=== PATIENT | male | born 1950 | race Caucasian/White ===

== ENCOUNTER 2021-03-25 12:43 | Emergency (ER) | payer MEDICARE, OTHER | END 2021-03-25 16:33 | disposition other institution (70) | LOC: FER 12:43 | DX: S62.606A Fracture of unspecified phalanx of right little finger, initial encounter for closed fracture (principal); S61.216A Laceration without foreign body of right little finger without damage to nail, initial encounter; W23.1XXA Caught, crushed, jammed, or pinched between stationary objects, initial encounter | CPT/HCPCS: 73140; 96365; J0690 ==